=== PATIENT | female | born 1950 | race African-American/Black ===

== ENCOUNTER 2018-01-25 22:19 | Emergency (ER) | payer OTHER ==
[~2018-01-25] VITALS: Ht 160 cm; Wt 114.0 kg
[2018-01-25 22:28] VITALS: BP 111/81
== END 2018-01-25 23:37 | disposition left against medical advice (07) ==
LOC: ER 22:48
DX: Z53.21 Procedure and treatment not carried out due to patient leaving prior to being seen by health care provider (principal); E11.9 Type 2 diabetes mellitus without complications; J45.909 Unspecified asthma, uncomplicated; Z88.6 Allergy status to analgesic agent; Z85.43 Personal history of malignant neoplasm of ovary
CPT/HCPCS: 82962